=== PATIENT | female | born 1990 | race Caucasian/White ===

== ENCOUNTER → 2019-10-16 17:00 | Outpatient (BNVA) | payer OTHER, SELFPAY | PROVIDERS: Visit Provider Nurse Practitioner Family | DX: Z20.828 Contact with and (suspected) exposure to other viral communicable diseases (principal) | CPT/HCPCS: 87635 ==

== ENCOUNTER 2020-03-01 23:02 | Emergency (ER) | payer MEDICAID, SELFPAY ==
[2020-03-01 23:07] VITALS: BP 132/88; PULSE 93; RESP 18; TEMP 36.3; O2SAT 96; BMI 33.8
[2020-03-01 23:12] VITALS: BP 132/88; PULSE 93; RESP 16; O2SAT 99
--- NOTE | 2020-03-01 23:24 | ED_ITS ---
HPI - Dental/Oral General: Chief complaint: Dental/Oral Stated complaint: BAD TOOTH Time Seen by Provider: 03/01/20 23:03 History of Present Illness: HPI Narrative: Patient complains about right upper molar that is been broken x2 years that she has been treating off-and-on pains been really bad tonight Tylenol and Anbesol is not working MD Complaint: tooth pain Teeth map: 1. Broken Onset (ago): year(s) Duration: constant Severity: moderate Severity scale (1-10): 6 Relieving factors: nothing Exacerbating factors: cold and heat Context: history of dental caries Associated symptoms: Reports no associated symptoms; Denies fever(s) Treatment prior to arrival: topical analgesic and oral analgesic Review of Systems Const: Denies: fever(s), chills or body aches Eyes: Denies: change in vision or blurry vision ENMT: Reports: dental pain; Denies: throat pain or nasal congestion Card: Denies: chest pain or dyspnea on exertion Resp: Denies: dyspnea, productive cough or non-productive cough GI: Denies: abdominal pain, nausea or vomiting Musc: Denies: extremity pain Skin/Breast: Denies: rash Neuro: Denies: headache(s) Psych: Denies: anxiety or depression Adalberto/Lymph: Denies: easy bruising Physical Exam Const: COMMON NORMALS: no acute distress HENMT: TEETH & GINGIVA IMAGES: 1. Broken tooth Psych: COMMON NORMALS: mental status grossly normal Course Vital Signs: Vital signs: Vital Signs Temperature 98.2 F 03/01/20 23:34 Pulse Rate 88 03/01/20 23:34 Respiratory Rate 16 03/01/20 23:34 Blood Pressure 123/72 03/01/20 23:34 Pulse Oximetry 100 03/01/20 23:34 Discharge Plan Discharge Patient Disposition: Home Clinical Impression: Toothache Condition: Stable Prescriptions: New clindamycin HCl 300 mg capsule 300 mg PO BID 7 Days Qty: 14 RF: 0 tramadol 50 mg tablet 50 mg PO TID PRN (Reason: pain) Qty: 10 RF: 0 Discharge Orders: Discharge Order (Routine); Ordered 03/01/20 Ordered By: Christofer Chappell Discharge Diet: Usual diet Discharge Activity: Resume usual activity Patient Instructions: Dental Caries (ED) Activity Restrictions/Additional Instructions: Follow-up with medical provider as directed. Take medications as prescribed. Return to the ER or your medical provider if condition worsens. Please read and understand discharge instructions. If any questions ask please. Follow-up the [facility] on [address] over by [place] with a dentist Discharge Date/Time: 03/01/20 23:36 Coding Level of Care Code ED Spacecraft Systems Engineer for Chg Fwd Exam Expanded Problem Focused
[2020-03-01] MEDS: clindamycin 150 mg Capsule 300 MG PO (23:27)
[2020-03-01] MEDS: TRAMadol 50 mg Tablet PO (23:28)
[2020-03-01 23:34] VITALS: BP 123/72; PULSE 88; RESP 16; TEMP 36.8; O2SAT 100
== END 2020-03-01 23:36 | disposition home or self-care (01) ==
PROVIDERS: Emergency Provider Nurse Practitioner Family
DX: K08.89 Other specified disorders of teeth and supporting structures (principal)
CPT/HCPCS: 12345; 99282; 99283

== ENCOUNTER 2020-10-23 13:22 | Emergency (ER) | payer MEDICAID, SELFPAY ==
[2020-10-23 13:52] VITALS: BP 133/87; PULSE 98; RESP 18; TEMP 36.9; O2SAT 96
--- NOTE | 2020-10-23 14:25 | ED_ITS ---
HPI - Dental/Oral General: Chief complaint: Dental/Oral Stated complaint: oral pain Time Seen by Provider: 10/23/20 13:58 History of Present Illness: HPI Narrative: Patient has a broken molar upper right side times few months started hurting last few days finally got appointment at the dentist in [place]. Complaint: tooth pain Teeth map: 1. Onset (ago): month(s) Duration: intermittent Severity: mild Associated symptoms: Reports no associated symptoms; Denies fever(s) Review of Systems Const: Denies: fever(s) or chills ENMT: Reports: other (Dental pain) Psych: Denies: anxiety or depression [facility] ED Female Reproductive History: Date of last menstrual period: 09/20/20 Physical Exam Const: COMMON NORMALS: no acute distress HENMT: TEETH & GINGIVA IMAGES: 1. Broken molar rear right side Psych: COMMON NORMALS: mental status grossly normal APPEARANCE: Yes grossly normal Course Vital Signs: Vital signs: Vital Signs Temperature 98.5 F 10/23/20 13:52 Pulse Rate 98 10/23/20 13:52 Respiratory Rate 18 10/23/20 13:52 Blood Pressure 133/87 10/23/20 13:52 Pulse Oximetry 96 10/23/20 13:52 Discharge Plan Discharge Patient Disposition: Home Clinical Impression: Toothache Condition: Stable Prescriptions: New clindamycin HCl 300 mg capsule 300 mg PO Q8H 7 Days Qty: 21 RF: 0 Celebrex 100 mg capsule 100 mg PO BID Qty: 20 RF: 0 No Action tramadol 50 mg tablet 50 mg PO TID PRN (Reason: pain) Qty: 10 RF: 0 Discharge Orders: Discharge ED (Routine); Ordered 10/23/20 Ordered By: Christofer Chappell Discharge Diet: Usual diet Discharge Activity: Resume usual activity Patient Instructions: Dental Caries (ED) Activity Restrictions/Additional Instructions: Keep appointment dentist. Take medication as directed. Coding Level of Care Code ED Adventure Therapist for Gail Todd
== END 2020-10-23 14:31 | disposition home or self-care (01) ==
PROVIDERS: Emergency Provider Nurse Practitioner Family
DX: K08.89 Other specified disorders of teeth and supporting structures (principal)
CPT/HCPCS: 99282